=== PATIENT | male | born 1995 | race Caucasian/White ===

== ENCOUNTER 2018-06-25 21:41 | Emergency (ER) | payer BC, OTHER ==
[~2018-06-25] VITALS: Ht 180.3 cm; Wt 95.3 kg
--- OUTSIDE RECORDS SUMMARY | 2018-06-25 21:47 | XMS REPORT | Continuity of Care Document ---
Author Author [facility] Organization [facility] Address Unknown Phone Unavailable Allergies There is no data. Medications There is no data. Problems There is no data. Procedures There is no data. Results There is no data. Encounters ACCT No. Visit Date/Time Discharge Status Pt. Type Provider Facility Loc./Unit Complaint [id number] 11/03/2012 17:00:00 11/03/2012 23:59:59 CLS Outpatient [id number] 06/25/2018 21:43:00 ACT Emergency CLEMENT BOLTON, MAIDA Arthur [facility] ER TIGHTNESS IN YOUR CHEST
[2018-06-25] MEDS ORDERED: FAMOTIDINE 20 MG (PEPCID) TABLET PO STA (22:17)
--- NOTE | 2018-06-25 22:29 | ED Chest Pain ---
General Chief Complaint: Chest Wall/Rib Pain Stated Complaint: TIGHTNESS IN YOUR CHEST Nursing Triage Note: PT VERBALIZED CHEST WALL TIGHTNESS AND PAIN THAT BEGAN TEN DAYS AGO. PT DENIES COUGH OR EXERTIONAL DYSPNEA. PT STATES HE RECENTLY BEGAN A NEW PERSCRIPTION FOR ANXIETY, LEXAPRO. Nursing Sepsis Screen: No Definite Risk Source: patient, family (mom) Exam Limitations: no limitations History of Present Illness Date Seen by Provider: Jun 25, 2018 Time Seen by Provider: 21:30 Initial Comments Patient presents to ER by private conveyance with his mother and a chief complaint for the past 10 days he's been having some tightness in the chest with an occasional sharp stabbing pain in the manubrium. He rates the pain right now is a 4 out of 10 but it is worse to get to an 8 out of 10. He has no coronary history. No trauma cough fevers chills cold like symptoms, nausea vomiting sweats diarrhea. No history of pectus or chest deformities. No primary familial history of early-onset coronary artery disease or sudden cardiac . He does take Lexapro which he started a 8-10 days ago but the chest pain preceded the Lexapro. He has not tried any Tylenol or Motrin for his chest pains. He has not sought workup for this day. Movement lifting or deep inspiration does not worsen the pain. Direct palpation does worsen the pain. He has no recent surgeries or any surgeries or periods of immobilization. No redness swelling or tenderness in his calves. He drinks occasionally had a beer earlier today. Allergies and Home Medications Allergies Coded Allergies: amoxicillin (Unverified Adverse Reaction, Unknown, NVD, 06/25/18) clavulanic acid (Unverified Adverse Reaction, Unknown, NVD, 06/25/18) Patient Home Medication List Home Medication List Reviewed: Yes Review of Systems Review of Systems Constitutional: No chills, No diaphoresis, No fever, No malaise EENTM: No Blurred Vision, No Double Vision Respiratory: Denies Cough, Denies Shortness of Air, Denies Wheezing Cardiovascular: See HPI, Chest Pain; Denies Edema, Denies Palpitations Gastrointestinal: Denies Abdomen Distended, Denies Abdominal Pain, Denies Nausea, Denies Vomiting Genitourinary: Denies Burning, Denies Discharge Musculoskeletal: No back pain, No joint pain Skin: No pruritus, No rash Psychiatric/Neurological: Denies Headache, Denies Numbness Past Httjwtx-Ytrsqp-Gonjmp Hx Patient Social History Alcohol Use: Occasionally Uses Alcohol Beverage of Choice: Beer Recreational Drug Use: No Smoking Status: Current Someday Smoker Type Used: Cigarettes, Electronic/Vapor Recent Foreign Travel: No Contact w/Someone Who Travel: No Recent Infectious Disease Expo: No Physical Exam Vital Signs Vital Signs - First Documented 06/25/18 21:42 Temp 97.9 Pulse 107 Resp 22 B/P (MAP) 132/99 (110) Pulse Ox 98 O2 Delivery Room Air Capillary Refill : Less Than 3 Seconds Height, Weight, BMI Height: 5'11.00" Weight: 210lbs. oz. 95.418443ev; BMI Method:Stated General Appearance: No Apparent Distress, WD/WN HEENT: PERRL/EOMI, Normal ENT Inspection, Pharynx Normal, Moist Mucous Membranes Neck: Full Range of Motion, Normal Inspection, Non Tender, Supple Respiratory: No Chest Non Tender; Lungs Clear, Normal Breath Sounds, No Accessory Muscle Use, No Respiratory Distress Cardiovascular: Regular Rate, Rhythm, No Edema, No Murmur, Normal Peripheral Pulses Gastrointestinal: Normal Bowel Sounds, Non Tender, Soft Extremity: Normal Capillary Refill, Normal Inspection, Normal Range of Motion, Non Tender, No Calf Tenderness, No Pedal Edema Neurologic/Psychiatric: Alert, Oriented x3 Progress/Results/Core Measures Results/Orders Lab Results Laboratory Tests Test 06/25/18 21:50 06/25/18 23:35 Range/Units White Blood Count 10.0 4.3-11.0 10^3/uL Red Blood Count 5.71 4.35-5.85 10^6/uL Hemoglobin 17.5 13.3-17.7 G/DL Hematocrit 47 40-54 % Mean Corpuscular Volume 83 80-99 FL Mean Corpuscular Hemoglobin 31 25-34 PG Mean Corpuscular Hemoglobin Concent 37 H 32-36 G/DL Red Cell Distribution Width 12.7 10.0-14.5 % Platelet Count 325 130-400 10^3/uL Mean Platelet Volume 10.0 7.4-10.4 FL Neutrophils (%) (Auto) 68 42-75 % Lymphocytes (%) (Auto) 22 12-44 % Monocytes (%) (Auto) 9 0-12 % Eosinophils (%) (Auto) 1 0-10 % Basophils (%) (Auto) 0 0-10 % Neutrophils # (Auto) 6.8 1.8-7.8 X 10^3 Lymphocytes # (Auto) 2.2 1.0-4.0 X 10^3 Monocytes # (Auto) 0.9 0.0-1.0 X 10^3 Eosinophils # (Auto) 0.1 0.0-0.3 10^3/uL Basophils # (Auto) 0.0 0.0-0.1 10^3/uL D-Dimer 0.42 0.00-0.49 UG/ML Sodium Level 141 135-145 MMOL/L Potassium Level 3.8 3.6-5.0 MMOL/L Chloride Level 104 98-107 MMOL/L Carbon Dioxide Level 20 L 21-32 MMOL/L Anion Gap 17 H 5-14 MMOL/L Blood Urea Nitrogen 18 7-18 MG/DL Creatinine 1.11 0.60-1.30 MG/DL Estimat Glomerular Filtration Rate > 60 BUN/Creatinine Ratio 16 Glucose Level 91 70-105 MG/DL Calcium Level 9.7 8.5-10.1 MG/DL Corrected Calcium 8.5-10.1 MG/DL Total Bilirubin 0.4 0.1-1.0 MG/DL Aspartate Amino Transf (AST/SGOT) 17 5-34 U/L Alanine Aminotransferase (ALT/SGPT) 18 0-55 U/L Alkaline Phosphatase 69 40-136 U/L Myoglobin 24.5 10.0-92.0 NG/ML Troponin I < 0.30 <0.30 NG/ML B-Type Natriuretic Peptide < 10.0 <100.0 PG/ML Total Protein 8.0 6.4-8.2 GM/DL Albumin 5.0 H 3.2-4.5 GM/DL Lipase 42 8-78 U/L Urine Opiates Screen NEGATIVE NEGATIVE Urine Oxycodone Screen NEGATIVE NEGATIVE Urine Methadone Screen NEGATIVE NEGATIVE Urine Propoxyphene Screen NEGATIVE NEGATIVE Urine Barbiturates Screen NEGATIVE NEGATIVE Ur Tricyclic Antidepressants Screen NEGATIVE NEGATIVE Urine Phencyclidine Screen NEGATIVE NEGATIVE Urine Amphetamines Screen NEGATIVE NEGATIVE Urine Methamphetamines Screen NEGATIVE NEGATIVE Urine Benzodiazepines Screen NEGATIVE NEGATIVE Urine Cocaine Screen NEGATIVE NEGATIVE Urine Cannabinoids Screen NEGATIVE NEGATIVE My Orders Orders - MAIDA VAUGHAN Ekg Tracing (06/25/18 21:44) Continuous Ekg Monitoring (06/25/18 21:44) Cbc With Automated Diff (06/25/18 22:17) Cardiac Profile 1 (06/25/18 22:17) Comprehensive Metabolic Panel (06/25/18 22:17) Myoglobin Serum (06/25/18 22:17) Lipase (06/25/18 22:17) BNP (06/25/18 22:17) Saline Lock/Iv-Start (06/25/18 22:17) Ns Iv 1000 Ml (Sodium Chloride 0.9%) (06/25/18 22:17) Drug Screen Stat (Urine) (06/25/18 22:17) Lidocaine 2% Viscous 15 Ml (Xylocaine Vi (06/25/18 22:30) Famotidine Tablet (Pepcid Tablet) (06/25/18 22:17) Antacid Suspension (Mylanta Suspension (06/25/18 22:30) Chest Pa/Lat (2 View) (06/25/18 22:41) Fibrin Degradation Products (06/25/18 23:07) Medications Given in ED Current Medications Medications Dose Ordered Sig/Sukumar Route Start Time Stop Time Status Last Admin Dose Admin Al Hydrox/Mg Hydrox/Simethicone 30 ml ONCE ONCE PO 06/25/18 22:30 12 22:31 DC 06/25/18 22:30 30 ML Lidocaine HCl 15 ml ONCE ONCE PO 06/25/18 22:30 06/25/18 22:31 DC 06/25/18 22:30 15 ML Vital Signs/I&O 06/25/18 21:42 Temp 97.9 Pulse 107 Resp 22 B/P (MAP) 132/99 (110) Pulse Ox 98 O2 Delivery Room Air Blood Pressure Mean: 110 Progress Progress Note #1: Time: 22:28 Progress Note Initial EKG is okay. Cardiac seems very unlikely. Chest wall or costochondritis seems most likely. Pleuritic chest pain less likely. 1.5 points on the Wells criteria; Low risk group: 1.3% chance of PE in an ED population. Another study assigned scores = 4 as PE Unlikely and had a 3% incidence of PE. He scores for his tachycardia which has consistently been 105- 110 since he's been here despite letting him rest. We'll get a urine drug screen and d-dimer to rule out PE. We'll also give him a GI cocktail and check some basic lab work. Two-view chest x-ray. Progress Note #2: Time: 00:04 Progress Note D-dimer rules out the possibility of a pulmonary embolism. His pain is nearly gone. Troponin EKG are negative. Urine drug screen negative. We'll give him some ketorolac for presumptive musculoskeletal chest wall pain and set him up on Naprosyn and follow-up in one to 2 weeks with primary care. Initial ECG Impression Date: Jun 25, 2018 Initial ECG Impression Time: 21:50 Initial ECG Rate: 102 Initial ECG Rhythm: S.Tach Initial ECG Intervals: Normal Initial ECG Impression: Normal Initial ECG Comparisson: No Previous ECG Available Comment Sinus tachycardia without ST segment changes. Diagnostic Imaging Diagonstic Imaging: Xray Plain Films/CT/US/NM/MRI: chest (2v) Comments No acute cardiopulmonary processes noted. Reviewed: Reviewed by Me Departure Impression Primary Impression: Anterior chest wall pain Disposition: 01 HOME, SELF-CARE Condition: Stable Departure-Patient Inst. Decision time for Depature: 00:06 Referrals: ROSEANN GIORDANO DO (PCP/Family) Primary Care Physician Patient Instructions: Costochondritis (DC) Add. Discharge Instructions: Start taking the Naprosyn tomorrow morning to 1 500 mg tablet twice a day with some food or you can use to the [id number] tablets twice a day. Alternatively you could use ibuprofen 800 mg 3 times a day scheduled for the next 1-2 weeks. In addition to this you can use Tylenol 1000 mg and ice, heat or topical creams such as icy hot or Biofreeze. If you're not having improvement in your symptoms in 1-2 weeks and make plans to follow-up with primary care for further evaluation. If you have shortness of breath, intractable chest pain or other worrisome symptoms then you can follow-up in the ER. All discharge instructions reviewed with patient and/or family. Voiced understanding. Scripts Naproxen (Naprosyn) 500 Mg Tablet 500 MG PO BID for 14 Days, #30 TAB 0 Refills Prov: MAIDA VAUGHAN 06/26/18 MAIDA VAUGHAN Jun 25, 2018 22:29
[2018-06-25 22:30] LABS: BASOPHILS % (AUTO) 0 % (0-10); EOSINOPHILS # (AUTO) 0.1 10^3/uL (0.0-0.3); EOSINOPHILS % (AUTO) 1 % (0-10); HEMATOCRIT 47 % (40-54); HEMOGLOBIN 17.5 G/DL (13.3-17.7); LYMPHOCYTES # (AUTO) 2.2 X 10^3 (1.0-4.0); LYMPHOCYTES % (AUTO) 22 % (12-44); MEAN CORPUSCULAR HEMOGLOBIN 31 PG (25-34); MEAN CORPUSCULAR HGB CONC 37 G/DL (32-36); MEAN CORPUSCULAR VOLUME 83 FL (80-99); MONOCYTES # (AUTO) 0.9 X 10^3 (0.0-1.0); MONOCYTES % (AUTO) 9 % (0-12); NEUTROPHILS # (AUTO) 6.8 X 10^3 (1.8-7.8); NEUTROPHILS % (AUTO) 68 % (42-75); PLATELET COUNT 325 10^3/uL (130-400); RED BLOOD COUNT 5.71 10^6/uL (4.35-5.85); RED CELL DISTRIBUTION WIDTH 12.7 % (10.0-14.5)
[2018-06-25] MEDS ORDERED: ANTACID SUSP 30 ML UDC (MYLANTA) PO ONE (22:30)
[2018-06-25] MEDS ORDERED: LIDOCAINE 2% VISCOUS 15 ML UDC PO ONE (22:30)
[2018-06-25] MEDS: NS IV 1000 ML 1,000 ML IV SCH ×2 (22:32→23:13)
[2018-06-25 22:53] LABS: ALANINE AMINOTRANSFERASE 18 U/L (0-55); ALKALINE PHOSPHATASE 69 U/L (40-136); BILIRUBIN,TOTAL 0.4 MG/DL (0.1-1.0); BUN/CREATININE RATIO 16; CALCIUM 9.7 MG/DL (8.5-10.1); CARBON DIOXIDE 20 MMOL/L (21-32); CHLORIDE 104 MMOL/L (98-107); CREATININE SERUM 1.11 MG/DL (0.60-1.30); GFR ESTIMATED > 60; GLUCOSE 91 MG/DL (70-105); LIPASE 42 U/L (8-78); POTASSIUM 3.8 MMOL/L (3.6-5.0); SODIUM 141 MMOL/L (135-145)
[2018-06-25 23:00] LABS: MYOGLOBIN SERUM 24.5 NG/ML (10.0-92.0)
[2018-06-25 23:57] LABS: AMPHETAMINE SCREEN, URINE NEGATIVE (NEGATIVE); BARBITURATE SCREEN URINE NEGATIVE (NEGATIVE); BENZODIAZEPINES SCREEN URINE NEGATIVE (NEGATIVE); CANNABINOID SCREEN, URINE NEGATIVE (NEGATIVE); COCAINE SCREEN URINE NEGATIVE (NEGATIVE); METHADONE STAT NEGATIVE (NEGATIVE); METHAMPHETAMINE SCREEN URINE S NEGATIVE (NEGATIVE); OPIATE SCREEN URINE NEGATIVE (NEGATIVE); OXYCODONE STAT NEGATIVE (NEGATIVE); PROPOXYPHENE STAT NEGATIVE (NEGATIVE); TRICYCLIC ANTIDEPRESSANTS SCRE NEGATIVE (NEGATIVE)
[2018-06-26] MEDS ORDERED: NAPR-1071 PO (00:07)
[2018-06-26] MEDS ORDERED: KETOROLAC 30 MG/ML VIAL IVP ONE (00:15)
[2018-06-26 00:22] VITALS: BP 122/83
--- NOTE | 2018-06-26 06:31 | Diagnostic Imaging Report ---
EXAMINATION: PA and lateral chest at 1109 PM INDICATION: Chest wall tightness There are no prior studies available for comparison. The heart size is within normal limits. The lungs are clear. There is no evidence for failure, pneumonia or for a pleural effusion. The mediastinum is not widened. The osseous structures are intact. IMPRESSION: There is no evidence for active disease. Dictated by: Dictated on workstation # [id number]
== END 2018-06-26 00:22 | disposition home or self-care (01) ==
LOC: EDUNIT# 21:41 → ER 21:43
DX: R07.89 Other chest pain (principal); F17.210 Nicotine dependence, cigarettes, uncomplicated; Z88.1 Allergy status to other antibiotic agents; Z88.8 Allergy status to other drugs, medicaments and biological substances
CPT/HCPCS: 36415; 71046; 80053; 80306; 83690; 83874; 83880; 84484; 85025; 85379